=== PATIENT | male | born 1965 | race Caucasian/White ===

== ENCOUNTER → 2017-10-07 | Day surgery (SDC) | payer BC, OTHER ==
[~2017-10-07] MED LIST: Lactated Ringers 1,000 ML IV SCH
== END ==
LOC: FB.SDS 06:42
PROVIDERS: ATTEND Surgery
DX: Z53.8 Procedure and treatment not carried out for other reasons (principal)

== ENCOUNTER 2020-01-07 09:19 | Emergency (ER) | payer BC ==
--- NOTE | 2020-01-07 10:21 | EDM.PDOC ---
ED HPI GENERAL MEDICAL PROBLEM - General Chief Complaint: Abdominal Pain Stated Complaint: PAIN IN LOWER ABD Time Seen by Provider: 01/07/20 09:20 Source of Information: Reports: Patient History Limitations: Reports: No Limitations - History of Present Illness INITIAL COMMENTS - FREE TEXT/NARRATIVE: pt has a lower abd pain since yesterday states dull ache worse when he want to urinate then this am seems it is all over Onset: Today Onset Date: 01/06/20 Duration: Hour(s): (24) Improves with: Reports: Rest Worsens with: Reports: Movement Associated Symptoms: Reports: Loss of Appetite, Malaise lower abd Pain Score (Numeric/FACES): 6 - Related Data Allergies Allergy/AdvReac Type Severity Reaction Status Date / Time tramadol Allergy Itching Verified 10/06/17 11:42 Home Meds: Home Meds Levothyroxine 125 mcg PO ACBREAKFAST 10/06/17 [History] Omeprazole 20 mg PO DAILY 10/06/17 [History] Ciprofloxacin HCl [Cipro] 500 mg PO BID #10 tablet 01/07/20 [Rx] Sennosides/Docusate Sodium [Senna-Docusate Sodium Tablet] 1 each PO BID #30 tablet 01/07/20 [Rx] Past Medical History HEENT History: Reports: Impaired Vision Cardiovascular History: Reports: None Respiratory History: Reports: None Gastrointestinal History: Reports: None Genitourinary History: Reports: None Musculoskeletal History: Reports: Arthritis, Back Pain, Chronic Neurological History: Reports: None Psychiatric History: Reports: None Endocrine/Metabolic History: Reports: Hypothyroidism, Other (See Below) Other Endocrine/Metabolic History: MISSAEL THYROIDITIS Hematologic History: Reports: None Immunologic History: Reports: None Oncologic (Cancer) History: Reports: None Dermatologic History: Reports: None - Past Surgical History Head Surgeries/Procedures: Reports: None HEENT Surgical History: Reports: Oral Surgery Cardiovascular Surgical History: Reports: None Respiratory Surgical History: Reports: None GI Surgical History: Reports: None Male Surgical History: Reports: None Endocrine Surgical History: Reports: Thyroidectomy Neurological Surgical History: Reports: None Musculoskeletal Surgical History: Reports: Other (See Below) Other Musculoskeletal Surgeries/Procedures:: RIGHT HAND TENDON REPAIR A CHILD. Social & Family History - Caffeine Use Caffeine Use: Reports: Coffee ED ROS GENERAL - Review of Systems Review Of Systems: Comprehensive ROS is negative, except as noted in HPI. Constitutional: Reports: No Symptoms HEENT: Reports: No Symptoms Respiratory: Reports: No Symptoms Cardiovascular: Reports: No Symptoms Endocrine: Reports: No Symptoms GI/Abdominal: Reports: Abdominal Pain, Constipation, Decreased Appetite, Distension. Denies: Anorexia, Bloody Stool, Diarrhea, Difficulty Swallowing, Vomiting : Reports: No Symptoms Musculoskeletal: Reports: No Symptoms, Neck Pain Skin: Reports: No Symptoms, Cyanosis Neurological: Reports: No Symptoms Psychiatric: Reports: No Symptoms ED EXAM, GI/ABD - Physical Exam Exam: See Below Exam Limited By: No Limitations General Appearance: Alert, WD/WN, No Apparent Distress Eyes: Bilateral: Abnormal EOM Nose: Normal Inspection Throat/Mouth: Normal Inspection Neck: Normal Inspection, Supple, Non-Tender Respiratory/Chest: Lungs Clear, Normal Breath Sounds Cardiovascular: Regular Rate, Rhythm GI/Abdominal Exam: Soft, Non-Tender (Male) Exam: Deferred Back Exam: Full Range of Motion Neurological: Alert, Oriented Psychiatric: Anxious Lymphatic: No Adenopathy Course - Vital Signs Last Recorded V/S: Last Vital Signs Temp 36.6 C 01/07/20 09:19 Pulse 81 01/07/20 09:19 Resp 14 01/07/20 09:19 BP 168/101 H 01/07/20 09:19 Pulse Ox 100 01/07/20 09:19 - Orders/Labs/Meds Labs: Laboratory Tests 01/07/20 Range/Units 10:21 Urine Color Yellow (YELLOW) Urine Appearance Clear (CLEAR) Urine pH 7.0 H (5.0-6.5) Ur Specific Jolo 1.005 L (1.010-1.025) Urine Protein Negative (NEGATIVE) mg/dL Urine Glucose (UA) Normal (NORMAL) mg/dL Urine Ketones Negative (NEGATIVE) mg/dL Urine Occult Blood Negative (NEGATIVE) Urine Nitrite Negative (NEGATIVE) Urine Bilirubin Negative (NEGATIVE) Urine Urobilinogen Normal (NEGATIVE) mg/dL Ur Leukocyte Esterase Negative (NEGATIVE) Urine RBC 0-5 (0-5) Urine WBC 0-5 (0-5) Ur Squamous Epith Cells Rare (NS,R,O) Urine Bacteria Not seen (NS) - Re-Assessments/Exams Free Text/Narrative Re-Assessment/Exam: 01/07/20 10:59 Ua negative will need colonoscopy high fiber diet recommended advised to return to ER for CT abd if pain persists Departure - Departure Time of Disposition: 10:50 Disposition: Home, Self-Care 01 Condition: Fair Clinical Impression: Colitis, Abdominal pain, Flank pain, Prostatitis, acute - Discharge Information *PRESCRIPTION DRUG MONITORING PROGRAM REVIEWED*: Not Applicable *COPY OF PRESCRIPTION DRUG MONITORING REPORT IN PATIENT JERRY: Not Applicable Instructions: Constipation, Adult, [id number], Flank Pain, Adult, Easy-to- Read, Prostatitis, [id number] Referrals: Navin Trevino MD [Primary Care Provider] - Forms: ED Department Discharge Sepsis Event Note - Evaluation Sepsis Screening Result: No Definite Risk - Focused Exam Vital Signs: Vital Signs Temp Pulse Resp BP Pulse Ox 01/07/20 09:19 36.6 C 81 14 168/101 H 100 Date Exam was Performed: 01/07/20 Time Exam was Performed: 10:44
== END 2020-01-07 11:05 | disposition home or self-care (01) ==
LOC: FB.ED 09:19
DX: N41.0 Acute prostatitis (principal); K52.9 Noninfective gastroenteritis and colitis, unspecified; E03.9 Hypothyroidism, unspecified; Z79.899 Other long term (current) drug therapy; Z88.6 Allergy status to analgesic agent
CPT/HCPCS: 81001; 99284

== ENCOUNTER 2022-11-12 07:30 | Day surgery (SDC) | payer BC ==
[2022-11-12] MEDS ORDERED: Propofol 200 MG/20 ML SDV IV ONE (07:31)
[2022-11-12] MEDS ORDERED: Lidocaine 2% 5 ML SDV IV ONE (07:31)
[2022-11-12] MEDS ORDERED: Lidocaine 2% 100 MG/5 ML Syringe IVPUSH ONE (07:31)
[2022-11-12] MEDS ORDERED: Sodium Chloride 0.9% 10 ML Syringe FLUSH PRN (07:34)
[2022-11-12] MEDS ORDERED: Lactated Ringers 1,000 ML IV SCH (07:34)
[2022-11-13] MEDS ORDERED: Sodium Chloride 0.9% 10 ML Syringe FLUSH PRN (07:45)
[2022-11-13] MEDS ORDERED: Lactated Ringers 1,000 ML IV SCH (07:45)
== END 2022-11-12 11:00 | disposition home or self-care (01) ==
LOC: FB.SDS 07:30
PROVIDERS: ATTEND Surgery
DX: Z12.11 Encounter for screening for malignant neoplasm of colon (principal); D12.0 Benign neoplasm of cecum; R06.03 Acute respiratory distress; M06.9 Rheumatoid arthritis, unspecified; E06.5 Other chronic thyroiditis; F17.210 Nicotine dependence, cigarettes, uncomplicated; Z79.899 Other long term (current) drug therapy; Z79.890 Hormone replacement therapy; Z98.890 Other specified postprocedural states; Z88.5 Allergy status to narcotic agent
CPT/HCPCS: 00812; 45385; 88304; 88305; J2704; J7120